=== PATIENT | female | born 1975 | race Caucasian/White ===

== ENCOUNTER 2016-07-22 18:17 | Emergency (ER) | payer OTHER ==
[2015-08-30 07:08] VITALS: BP 145/68; PULSE 78; RESP 17
[~2016-07-22] VITALS: Ht 167.6 cm; Wt 62.0 kg
[~2016-07-22 18:17] MED LIST: AMPH20CA PO; DULO30CA47 PO
[2016-07-22 18:19] VITALS: Ht 167.6 cm; Wt 62.0 kg
--- NOTE | 2016-07-22 20:39 | RADRPT ---
PROCEDURE: XR Chest. CLINICAL INDICATION: Dyspnea. TECHNIQUE: Single frontal view of the chest was obtained COMPARISON: 02/09/2016. FINDINGS: The heart and mediastinum are within normal limits. Bilateral perihilar infiltrates are new. Findings may represent pneumonias. There is no pleural effusion or pneumothorax. IMPRESSION: New bilateral perihilar infiltrates may represent pneumonias. RPTAT: [facility] Aura Dudley Physician Date Time Electronically viewed and signed by Aura Dudley Physician on 07/22/2016 20:38 RS/
[2016-07-22 20:56] VITALS: TEMP 97
[2016-07-22] MEDS ORDERED: AZIT250T94 PO (20:58)
[2016-07-22] MEDS ORDERED: IBUP-1542 PO (20:58)
[2016-07-22] MEDS ORDERED: CEFTRIAXONE 1 GM INJ IM ONE (21:00)
[2016-07-22] MEDS ORDERED: LIDOCAINE 1% (MDV) 20 ML INJ SC ONE (21:00)
--- NOTE | 2016-07-23 01:16 | ERD ---
ER Documentation Chief Complaint Date/Time DATE: 07/23/16 TIME: 01:05 Chief Complaint pt c/o sob, ap, nausea after eating HPI Patient is a 40-year-old female with a past medical history of depression, anxiety, mood disorder, fibromyalgia, chronic fatigue syndrome, who presents to the emergency department with numerous concerns including shortness of breath, nausea and abdominal pain. Patient states that "10-15 minutes after eating, she develops nausea, shortness of breath and leg shaking." She states upon lying down her symptoms improved. Patient states that the symptoms are making her "anxious and agitated." Patient states that symptoms have been ongoing for the last 4 days. Patient reports minimal diffuse abdominal pain. Patient denies any cough, chest pain, left upper extremity pain or shortness of breath. Patient does report taking all medications as prescribed. Patient denies any fevers, chills and pain with urination. Patient denies any suicidal or homicidal ideation at this time. Patient denies any recent travel. No sick contacts. ROS All systems reviewed and are negative except as per history of present illness. Medications Home Meds Active Scripts Ibuprofen* (Motrin*) 600 Mg Tab, 600 MG PO Q6, #30 TAB Prov:HANANE POLLOCK PA-C 07/22/16 Azithromycin* (Zithromax*) 250 Mg Tablet, 250 MG PO .ZPACK DIRECTED, #6 TAB TAKE 500 MG (2 TABS) THE FIRST DAY THEN 250 MG (1 TAB) DAYS 2-5 Prov:HANANE POLLOCK PA-C 07/22/16 Reported Medications Duloxetine Hcl* (Duloxetine Hcl*) 30 Mg Capsule.dr, 30 MG PO BID, #60 CAP 08/30/15 Amphet Isq-Tpqeal-Z-Amphet (Dextroamp-Amphetamine ER) 20 Mg Cap.er.24h, 20 MG PO DAILY, CAP 08/30/15 Allergies Allergies: Coded Allergies: No Known Allergy (Unverified , 08/30/15) PMhx/Soc History of Surgery: No Anesthesia Reaction: No Hx Neurological Disorder: No (FIBRAMYALSIA) Hx Respiratory Disorders: No Hx Cardiac Disorders: No Hx Psychiatric Problems: Yes (depression, anxiety, mood disorder) Hx Miscellaneous Medical Probl: Yes (vertigo) Hx Alcohol Use: No Hx Substance Use: Yes (marijuana (3 years ago)) Hx Tobacco Use: Yes (4-5 cigarettes/day) Smoking Status: Current every day smoker FmHx Family History: No diabetes Physical Exam Vitals Vital Signs Date Time Temp Pulse Resp B/P Pulse Ox O2 Delivery O2 Flow Rate FiO2 07/22/16 20:56 97.0 07/22/16 18:19 98.3 85 16 111/71 100 Physical Exam GENERAL: Well-developed, well-nourished female. Appears in no acute distress. Speaking in full sentences. HEAD: Normocephalic, atraumatic. EYES: Pupils are equally reactive bilaterally. EOMs grossly intact. No conjunctival erythema. ENT: Moist mucous membranes. No uvula deviation. No kissing tonsils. NECK: Supple. No meningismus. Normal range of motion of the neck. LUNG: Clear to auscultation bilaterally. No rhonchi, wheezing, rales or coarse breath sounds. HEART: Regular rate and rhythm. No murmurs, rubs or gallops. ABDOMEN: No scars, ecchymosis or rashes noted. Soft, nontender, and nondistended. Positive bowel sounds in all four quadrants. No rebound tenderness , no guarding. (-) McBurney's point tenderness. No CVA tenderness. BACK: No midline tenderness. EXTREMITIES: Equal pulses bilaterally. No peripheral clubbing, cyanosis or edema. No unilateral leg swelling. NEUROLOGIC: Alert and oriented. Moving all four extremities without any difficulty. Normal speech. Steady gait. SKIN: Normal color. Warm and dry. No rashes or lesions. PSYCH: appears anxious Results 24 hrs Laboratory Tests Test 07/22/16 19:37 07/22/16 20:55 Bedside Glucose 77mg/dL 98mg/dL Current Medications Medications (Trade) Dose Ordered Sig/Karla Route PRN Reason Start Time Stop Time Status Last Admin Dose Admin Ceftriaxone Sodium (Rocephin) 1 gm ONCE ONCE IM 07/22/16 21:00 07/22/16 21:01 DC 07/22/16 21:07 Lidocaine (Xylocaine 1% (Mdv) 20 ml) 20 ml ONCE ONCE SC 07/22/16 21:00 07/22/16 21:01 DC Procedures/MDM ED COURSE: The patient was stable throughout ED course. I kept the patient and/or family informed of laboratory and diagnostic imaging results throughout the ED course. EKG: Read by Dr. Hull, attending physician. EKG shows normal sinus rhythm at a rate of 67 bpm No arrhythmias, acute ST elevations or T wave changes were noted. DIAGNOSTIC IMAGING: Read by radiologist. DIAGNOSTIC IMAGING REPORT Patient: MELITON CRUZ : 1975 Age: 40 Sex: F MR #: [id number] DOS: 07/22/16 1858 Ordering MD: HANANE POLLOCK PA-C Location: [facility] Room/Bed: PROCEDURE: XR Chest. CLINICAL INDICATION: Dyspnea. TECHNIQUE: Single frontal view of the chest was obtained COMPARISON: 02/09/2016. FINDINGS: The heart and mediastinum are within normal limits. Bilateral perihilar infiltrates are new. Findings may represent pneumonias. There is no pleural effusion or pneumothorax. IMPRESSION: New bilateral perihilar infiltrates may represent pneumonias. RPTAT: [facility] Physician Shree Date Time Electronically viewed and signed by Physician Shree on 07/22/2016 20:38 RS/ CC: HANANE POLLOCK PA-C MEDICATIONS GIVEN: Rocephin IM Patient tolerated medication well with no adverse reactions. Patient reported improvement in pain. MEDICAL DECISION MAKING: This is a 40-year-old female who presents with numerous concerns including shortness of breath, abdominal pain, nausea after eating. Patient reports he symptoms occurring for the last 4 days.. Vital signs were reviewed. Patient was afebrile. Patient was not hypoxic. ENT exam was normal. Lung exam was normal. EKG was within normal limits. Chest x-ray showed new bilateral perihilar infiltrates which may represent pneumonias. She was given Rocephin IM. Patient will be discharged home with a course of antibiotics. Patient's glucose level was noted to be 77 upon presentation. Patient was given food and juice here in the ED. Patient's glucose level was noted to be 98 upon discharge. Given these findings, the patient's presentation is most consistent with pneumonia.. Low suspicion for persistent hypoglycemia, ACS, arrhythmia, pericarditis, pneumothorax, pleural effusion, appendicitis, meningitis, sinusitis, otitis externa, acute otitis media, strep pharyngitis, epiglottitis or peritonsillar abscess. PRESCRIPTIONS: Zithromax, Ibuprofen DISCHARGE: At this time, patient is stable for discharge and outpatient management. Patient advised to hydrate well. I have instructed the patient to follow-up with his/her primary care physician in 1-2 days. I have instructed the patient to promptly return to the ER for any new or worsening symptoms including increased pain, swelling, fever, nausea, vomiting, weakness or difficulty breathing. The patient and/or family expressed understanding of and agreement with this plan. All questions were answered. Home care instructions were provided. Departure Diagnosis: Primary Impression: Pneumonia Pneumonia type: due to unspecified organism Laterality: bilateral Lung location: unspecified part of lung Qualified Code: J18.9 - Pneumonia of both lungs due to infectious organism, unspecified part of lung Condition: Stable Patient Instructions: Pneumonia (Adult) Additional Instructions: Call your primary care doctor TOMORROW for an appointment during the next 1-2 days.See the doctor sooner or return here if your condition worsens before your appointment time. HANANE POLLOCK PA-C July 23, 2016 01:16
== END 2016-07-22 21:25 | disposition home or self-care (01) ==
LOC: FTE 18:17
DX: J18.9 Pneumonia, unspecified organism (principal); F17.210 Nicotine dependence, cigarettes, uncomplicated
CPT/HCPCS: 71010; 82962; 93005; 96372; J0696; Z7502; Z7610